=== PATIENT | female | born 1970 | race Caucasian/White ===

== ENCOUNTER 2019-01-04 06:02 | Emergency (ER) | payer BC, OTHER ==
[2019-01-04] MEDS ORDERED: Ketorolac Tromethamine 60 MG/2 ML VIAL ONE (06:40)
== END 2019-01-04 07:46 | disposition home or self-care (01) ==
LOC: ERS 06:02
DX: S39.012A Strain of muscle, fascia and tendon of lower back, initial encounter (principal); J45.909 Unspecified asthma, uncomplicated; F32.9 Major depressive disorder, single episode, unspecified; Z79.899 Other long term (current) drug therapy; X58.XXXA Exposure to other specified factors, initial encounter
CPT/HCPCS: 96372; J1885

== ENCOUNTER 2019-11-11 06:52 | Emergency (ER) | payer BC, OTHER, SELFPAY ==
--- NOTE | 2019-11-11 08:04 | RAD ---
EXAM: Chest Two Views 11/11/2019 8:01 AM HISTORY: Cough and sore throat COMPARISON: None. FINDINGS: Heart: Normal in size and contour. Pulmonary vessels: Normal. Costophrenic angles: Clear. Lungs: No focal consolidation. Pneumothorax: None. Osseous structures:Intact. Additional findings: None. IMPRESSION: No acute cardiopulmonary abnormality.
[2019-11-11] MEDS ORDERED: Dexamethasone 10 MG/ML VIAL ONE (09:04)
== END 2019-11-11 09:45 | disposition home or self-care (01) ==
LOC: ERS 06:52
DX: J20.9 Acute bronchitis, unspecified (principal); I10 Essential (primary) hypertension; J45.909 Unspecified asthma, uncomplicated; F32.9 Major depressive disorder, single episode, unspecified
CPT/HCPCS: 71046; 87081; 87430; 87804; 94640; 96372; J1100; J7620

== ENCOUNTER 2022-04-11 18:43 | Emergency (ER) | payer OTHER, SELFPAY | END 2022-04-11 21:53 | disposition home or self-care (01) | LOC: ERS 18:43 | DX: S93.401A Sprain of unspecified ligament of right ankle, initial encounter (principal); S50.311A Abrasion of right elbow, initial encounter; M25.551 Pain in right hip; M25.561 Pain in right knee; W01.0XXA Fall on same level from slipping, tripping and stumbling without subsequent striking against object, initial encounter; Y99.0 Civilian activity done for income or pay ==

== ENCOUNTER 2022-07-29 16:08 | Emergency (ER) | payer SELFPAY ==
[2022-07-29] MEDS ORDERED: Lidocaine 4% Cream 5 GM TUBE w/ Tegaderm ONE (16:40)
== END 2022-07-29 17:09 | disposition home or self-care (01) ==
LOC: ERS 16:08
DX: T81.30XA Disruption of wound, unspecified, initial encounter (principal); L03.311 Cellulitis of abdominal wall
CPT/HCPCS: 12020

== ENCOUNTER 2022-07-30 08:25 | Emergency (ER) | payer SELFPAY | END 2022-07-30 10:35 | disposition home or self-care (01) | LOC: ERS 08:25 | DX: T81.31XA Disruption of external operation (surgical) wound, not elsewhere classified, initial encounter (principal); K21.9 Gastro-esophageal reflux disease without esophagitis; Z79.899 Other long term (current) drug therapy | CPT/HCPCS: 99283 ==

== ENCOUNTER 2022-11-30 08:08 | Emergency (ER) | payer BC, SELFPAY ==
[2022-11-30] MEDS ORDERED: Ondansetron PF 4 MG/2 ML Vial ONE ×2 (08:54→08:57)
[2022-11-30] MEDS ORDERED: Pantoprazole 40 MG VIAL ONE (08:54)
[2022-11-30 09:46] LABS: #Eosinphils 0.1 thou/uL (0.0-0.7); #Lymphocytes 1.1 thou/uL (1.20-3.40); #Monocytes 0.3 thou/uL (0.11-0.59); #Neutrophils 2.1 thou/uL (1.40-6.50); %Basophils 0.2 % (0.0-1.0); %Eosinophils 1.7 % (0.0-10.0); %Lymphocytes 31.8 % (21.0-51.0); %Monocytes 7.4 % (0.0-10.0); Hemoglobin 11.8 g/dL (12.0-16.0); Mean Corpuscular HGB CONC 32.3 g/dL (32.0-36.0); Mean Corpuscular Hemoglobin 29.1 pg (27.0-31.0); Mean Corpuscular Volume 90.2 fl (78.0-98.0); Mean Platelet Volume 7.7 fL (7.4-10.4); Platelet Count 289 10x3/uL (130-400); RBC Distribution Width 10.8 % (11.5-14.5); Red Blood Cell (RBC) Count 4.06 mill/uL (4.20-5.40); White Blood Cell (WBC) Count 3.5 10x3/uL (4.8-10.8)
[2022-11-30 10:05] LABS: ALT (SGPT) 13 U/L (8-55); AST (SGOT) 19 U/L (5-34); Albumin 4.2 g/dL (3.5-5.0); Alkaline Phosphatase 90 U/L (40-110); Anion Gap 11 mmol/L (10-20); BUN (Urea Nitrogen) 16 mg/dL (7.0-18.7); Bilirubin, Total 0.5 mg/dL (0.2-1.2); Calc. Creatinine Clearance 0 mL/min (70-130); Calcium 9.9 mg/dL (7.8-10.44); Carbon Dioxide 29 mmol/L (22-29); Chloride 104 mmol/L (98-107); Estimated GFR 107; Globulin 2.8 g/dL (2.4-3.5); Glucose 96 mg/dL (70-105); Lipase 25 U/L (8-78); Potassium 3.9 mmol/L (3.5-5.1); Sodium 140 mmol/L (136-145)
[2022-11-30] MEDS ORDERED: Iopamidol-370 76% 500 ML 1 ML ONE (13:10)
[2022-11-30] MEDS ORDERED: GASTROGRAFIN 30 ML BOT ONE (13:10)
== END 2022-11-30 11:55 | disposition home or self-care (01) ==
LOC: ERS 08:08
DX: R10.10 Upper abdominal pain, unspecified (principal); R13.10 Dysphagia, unspecified
CPT/HCPCS: 71260; 74177; 80053; 83690; 83735; 85025; 96374; 96375; C9113; J1611; J2405

== ENCOUNTER 2023-08-17 05:56 | Emergency (ER) | payer BC, OTHER ==
[2023-08-17] MEDS ORDERED: Famotidine/PF 20 mg/2ml Vial ONE (06:23)
[2023-08-17] MEDS ORDERED: Ondansetron PF 4 MG/2 ML Vial ONE (06:23)
[2023-08-17 06:47] LABS: #Eosinphils 0.1 thou/uL (0.0-0.7); #Monocytes 0.4 thou/uL (0.11-0.59); %Basophils 0.1 % (0.0-1.0); %Eosinophils 1.5 % (0.0-10.0); %Monocytes 6.5 % (0.0-10.0); %Neutrophils 73.6 % (42.0-75.0); Hematocrit 37.6 % (36.0-47.0); Hemoglobin 12.5 g/dL (12.0-16.0); Mean Corpuscular HGB CONC 33.2 g/dL (32.0-36.0); Mean Corpuscular Hemoglobin 29.1 pg (27.0-31.0); Mean Corpuscular Volume 87.4 fl (78.0-98.0); Mean Platelet Volume 10.3 fL (7.4-10.4); Platelet Count 260 10x3/uL (130-400); RBC Distribution Width 12.2 % (11.5-14.5); White Blood Cell (WBC) Count 6.8 10x3/uL (4.8-10.8)
[2023-08-17 07:11] LABS: ALT (SGPT) 13 U/L (8-55); AST (SGOT) 18 U/L (5-34); Albumin 4.9 g/dL (3.5-5.0); Alkaline Phosphatase 103 U/L (40-110); Anion Gap 14 mmol/L (10-20); BUN (Urea Nitrogen) 15 mg/dL (7.0-18.7); Bilirubin, Total Less than 0.2 mg/dL (0.2-1.2); Calc. Creatinine Clearance 0 mL/min (70-130); Calcium 10.4 mg/dL (7.8-10.44); Carbon Dioxide 27 mmol/L (22-29); Chloride 101 mmol/L (98-107); Estimated GFR 99; Globulin 2.6 g/dL (2.4-3.5); Glucose 115 mg/dL (70-105); Lipase 30 U/L (8-78); Potassium 4.3 mmol/L (3.5-5.1); Protein, Total 7.5 g/dL (6.0-8.3); Sodium 138 mmol/L (136-145)
[2023-08-17 07:15] LABS: Troponin I Less than 0.010 ng/mL (< 0.028)
[2023-08-17 09:22] LABS: Bilirubin Negative (Negative); Blood, Urine Negative (Negative); CAUTI Indications for Culture Pelvic or flank pain; Clarity Clear (Clear); Glucose, Urine (Dipstick) Normal (Negative); Ketone, Urine Negative (Negative); Leukocyte Negative Leu/uL (Negative); Nitrite Negative (Negative); Protein, Urine (Dipstick) Negative (Neg-Trace); RBC/HPF 0-3 HPF (0-3); Squamous Epithelial 0-3 HPF (0-3); Urobilinogen Normal mg/dL (Less than 2); WBC/HPF 0-3 HPF (0-3)
[2023-08-17 09:23] LABS: Bacteria/HPF 1+ HPF (None Seen); Specific Gravity, Urine Greater than 1.060 (1.002-1.036)
[2023-08-17 09:24] LABS: Urine Culture Reflex No No
== END 2023-08-17 09:14 | disposition home or self-care (01) ==
LOC: ERS 05:56
DX: R10.9 Unspecified abdominal pain (principal); K21.9 Gastro-esophageal reflux disease without esophagitis
CPT/HCPCS: 74177; 80053; 81001; 83690; 84484; 85025; 93005; 96374; 96375; J2405; S0028